=== PATIENT | female | born 1995 | race African-American/Black ===

== ENCOUNTER 2016-11-04 19:06 | Emergency (ER) | payer MEDICAID ==
[~2016-11-04 19:06] MED LIST: LEVA500T PO; LISI-519 PO
[2016-11-04 19:11] VITALS: BP 119/69; PULSE 111; RESP 14; TEMP 99.2; O2SAT 99
== END 2016-11-04 20:30 | disposition left against medical advice (07) ==
LOC: NED 19:06
DX: E11.65 Type 2 diabetes mellitus with hyperglycemia (principal)
CPT/HCPCS: 99281

== ENCOUNTER 2017-01-21 21:30 | Emergency (ER) | payer MEDICAID ==
[~2017-01-21] VITALS: Ht 162.6 cm; Wt 85.0 kg
[2017-01-21 21:32] VITALS: BP 171/110; PULSE 102; RESP 16; TEMP 100; O2SAT 100
--- NOTE | 2017-01-21 22:12 | PD ---
Physical Exam Time Seen by Provider: 22:11 Narrative 21 y/o female here for evaluation of foreign body(qtip cotton) lodged in ear. Vital signs reviewed. Seen at triage desk. Awaiting bed placement. Data Data Last Documented VS Vital Signs Date Time Temp Pulse Resp B/P Pulse Ox O2 Delivery O2 Flow Rate FiO2 01/21/17 21:32 100.0 102 16 171/110 100 Room Air MDM Medical Record Reviewed: Yes Supervised Visit with UYEN: Alejandro Ramirez Jan 21, 2017 22:12
--- NOTE | 2017-01-21 23:38 | PD ---
HPI Chief Complaint: Foreign Body Time Seen by Provider: 23:33 Travel History International Travel<30 days: No Contact w/Intl Traveler<30days: No Traveled to known affect area: No History of Present Illness HPI Patient comes in for evaluation of a foreign body in her left ear that occurred shortly prior to arrival. Patient states that he was cleaning her ear with a Q- tip when the tip came off and stayed her ear. Patient states she tried to get it out using a comb without success. Patient denies any pain with this. Denies anything making it better or worse. Patient states that she has did not take her nighttime dose of her blood pressure medicine prior to coming to the emergency department. Denies any chest pain, headache, shortness of breath, back pain, numbness or tingling anywhere, or abdominal pain. 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) Cancer: No Cardiovascular Problems: Yes (htn) Diabetes: Yes Diminished Hearing: No Genitourinary: No Hypertension: Yes Immune Disorder: No Implanted Vascular Access Dvce: No Musculoskeletal: No Neurologic: No Psychiatric: Yes Reproductive: Yes (Ovarian cyst 3cm 09/09/15, presently 09/23/15) Respiratory: Yes (asthma) Immunizations Current: Yes ?: Unknown : 7 Para: 3 Miscarriage: 4 Dilation and Curettage (D&C): Yes Past Surgical History Abdominal Surgery: Yes (C section 2012 2014, D$C 2010) Section: Yes (2) Social History Alcohol Use: No Tobacco Use: No Substance Use: No Allergies-Medications (Allergen,Severity, Reaction): Coded Allergies: Latex (Verified Allergy, Intermediate, EDEMA, 01/21/17) Amoxil (Verified Adverse Reaction, Unknown, 01/21/17) Reported Meds & Prescriptions Reported Meds & Active Scripts Active Reported Humulin R Inj (Insulin Human Regular) 1,000 Unit/10 Ml Vial 2-10 Units SQ TIDAC PRN IMPORTANT TO EAT A MEAL WITHIN 30-60 MINUTES OF DOSING Novolin 70-30 Inj (Insulin Human Isoph/Insulin Regular) 1,000 Unit/10 Ml Vial 50 Units SQ BID Lisinopril 5 Mg Tab 10 Mg PO DAILY Review of Systems Except as stated in HPI: all other systems reviewed are Neg Physical Exam Narrative GENERAL: Well-developed, overly nourished, in no acute distress, and non-ill appearing. SKIN: Focused skin assessment warm and dry. HEAD: Atraumatic. Normocephalic. EYES: Pupils equal and round. EOMI. No scleral icterus. No injection or drainage. ENT: No nasal bleeding or discharge. Mucous membranes pink and moist. Foreign body noted auditory canal left ear. NECK: Trachea midline. Supple. No nuclear rigidity. RESPIRATORY: No accessory muscle use. No respiratory distress. MUSCULOSKELETAL: No obvious deformities. No clubbing. No cyanosis. No edema. Full range of motion. NEUROLOGICAL: Awake and alert. No obvious cranial nerve deficits. Motor grossly within normal limits. Normal speech. PSYCHIATRIC: Appropriate mood and affect; insight and judgment normal. Data Data Last Documented VS Vital Signs Date Time Temp Pulse Resp B/P Pulse Ox O2 Delivery O2 Flow Rate FiO2 01/21/17 23:54 159/114 01/21/17 21:32 100.0 102 16 100 Room Air MDM Medical Decision Making Medical Screen Exam Complete: Yes Emergency Medical Condition: Yes Differential Diagnosis Foreign body, otitis media, otitis externa, other Narrative Course The patient has a prior history of hypertension and admits to not taking her antihypertensive medications this evening. The patient has no symptoms as well. The patient denied headache, changes in vision, nausea, vomiting, dizziness, weakness or loss of sensation. The patient denied and chest, back or abdominal pain. The patient also denied any shortness of breath, dyspnea on exertion, orthopnea or PND. The patient denies any edema to extremities. The patients blood pressures at discharge were at an acceptable level. I discussed with the patient the importance of continuing daily antihypertensive and to not skip doses or stop medications suddenly without instruction by their primary care physician. The patient was instructed to follow up and potential adjustment of blood pressure medications. Return warnings were given to the patient and the patient agreed with plan of care. Patient in no obvious distress upon re-evaluation. Any questions/concerns in reference to patient diagnosis/condition discussed and clarified prior to patient's discharge. Reinforced sheer importance of close follow up with patient 's primary physician or primary care clinic. Instructed patient to return to ED immediately, if symptoms return/worsen. Pt showed understanding of above instructions. Further instructions and recommendations were detailed in discharge paperwork. Pt ambulated without difficulty out of ED at discharge. Procedures Procedure Narrative Verbal consent was obtained. Foreign body was easily removed using alligator forceps. No complications. Patient tolerated procedure well. Auditory canal was reexamined with no residual foreign body, erythematous, or edema noted. Tympanic membranes pearly stanley. Diagnosis Primary Impression: Foreign body in left ear, initial encounter Additional Impression: Hypertension Qualified Code: I10 - Hypertension, unspecified type Patient Instructions: Ear Foreign Body (ED), General Instructions, Hypertension (DC) Additional Instructions: Follow-up with your primary care physician one to 5 days for reevaluation of your hypertension. Take all of your hypertension medication as prescribed. Return to the emergency department if symptoms get worse. Disposition: 01 DISCHARGE HOME Condition: Stable Emir Cortes Jan 21, 2017 23:38
[2017-01-21] MEDS ORDERED: INSU100V2 SQ (23:50)
[2017-01-21] MEDS ORDERED: NOVO7030P2 SQ (23:50)
[2017-01-21 23:54] VITALS: BP 159/114
== END 2017-01-22 00:09 | disposition home or self-care (01) ==
LOC: NEPK 21:30
DX: T16.2XXA Foreign body in left ear, initial encounter (principal); I10 Essential (primary) hypertension; J45.909 Unspecified asthma, uncomplicated; F32.9 Major depressive disorder, single episode, unspecified; Z79.4 Long term (current) use of insulin; Z79.899 Other long term (current) drug therapy
CPT/HCPCS: 69200